=== PATIENT | male | born 1995 | race Hispanic/Latino ===

== ENCOUNTER 2024-02-02 21:37 | Emergency (ER) | payer SELFPAY ==
[~2024-02-02] VITALS: Ht 172.7 cm; Wt 112.0 kg
[~2024-02-02 21:37] MED LIST: doxycycline
[2024-02-02 22:02] VITALS: PULSE 116; RESP 18; TEMP 102.5
[2024-02-02] MEDS: ACETAMINOPHEN 325 MG TAB PO ONE (22:39)
[2024-02-02] MEDS: IBUPROFEN 600 MG TAB PO ONE (22:40)
[2024-02-02] MEDS ORDERED: DIPHENHYDRAMINE25 M2 PO (22:44)
[2024-02-02] MEDS ORDERED: TYLENOL325 MG PO (22:44)
[2024-02-02] MEDS ORDERED: IBUPROFEN800 MG PO (22:44)
[2024-02-02 23:19] VITALS: BP 135/74; PULSE 108; RESP 18; TEMP 101.5; O2SAT 97
== END 2024-02-02 23:19 | disposition home or self-care (01) ==
LOC: FSED 21:46
DX: B34.9 Viral infection, unspecified (principal)
CPT/HCPCS: 0223U; 87400; 99283